=== PATIENT | female | born 1950 | race Caucasian/White ===

== ENCOUNTER 2021-07-27 14:26 | Emergency (ER) | payer MEDICARE, BC ==
[~2021-07-27] VITALS: Ht 160 cm; Wt 84.1 kg
[2021-07-27 14:34] VITALS: TEMP 97.5
[2021-07-27 17:12] LABS: BASO % 0.4 % (0.0-2.0); EOS % 0.3 % (0.0-4.0); GRAN # 7.1 K/mm3 (1.4-6.5); HEMATOCRIT 45.2 % (37.0-47.0); HEMOGLOBIN 14.7 g/dl (12.5-16.0); LYMPH # 1.7 K/mm3 (1.2-3.4); LYMPH % 18.2 % (20.0-51.0); MEAN CELL VOLUME 95 fl (80.0-100.0); MEAN CORPUSCULAR HEMOGLOBIN 31 pg (27-31); MEAN CORPUSCULAR HGB CONC 33 g/dl (33.0-37.0); MEAN PLATELET VOLUME 8.6 fl (7.4-10.4); MONO # 0.6 K/mm3 (0.1-0.6); MONO % 6.7 % (1.7-9.3); PLATELET COUNT 274 K/mm3 (130-400); RED BLOOD COUNT 4.76 M/mm3 (4.10-5.30); REDCELL DISTRIBUTION WIDTH-CV 12.1 % (11.5-14.5)
[2021-07-27 17:30] LABS: PARTIAL THROMBOPLASTIN TIME 35.6 SECONDS (26.0-37.0); PROTHROMBIN TIME 11.7 SECONDS (9.7-12.8)
[2021-07-27 17:46] LABS: ALANINE AMINOTRANSFERASE 16 U/L (0-55); ALBUMIN 3.9 gm/dL (3.4-4.8); ALKALINE PHOSPHATASE 78 U/L (40-150); ANION GAP 14 mmol/L (7-16); AST,SGOT 21 U/L (5-34); BILIRUBIN,TOTAL 0.6 mg/dL (0.2-1.2); BLOOD UREA NITROGEN 16 mg/dL (10-20); CALCIUM 9.5 mg/dL (8.4-10.2); CARBON DIOXIDE 25 mmol/L (23-31); CHLORIDE 104 mmol/L (98-107); CREATININE, serum 0.79 mg/dL (0.57-1.11); GLUCOSE 87 mg/dL (70-99); POTASSIUM 3.6 mmol/L (3.5-4.5); SODIUM 143 mmol/L (136-145); TOTAL PROTEIN 7.5 gm/dL (6.2-8.1)
[2021-07-27] MEDS ORDERED: SYNTHROID0.05 MG/TA PO (17:47)
[2021-07-27] MEDS ORDERED: CARDIZEM CD 30300 MG PO (17:48)
[2021-07-27] MEDS ORDERED: ASPIRIN 81M81 MG/TA2 PO (17:48)
[2021-07-27] MEDS ORDERED: HYDRODIURIL50 MG PO (17:48)
[2021-07-27] MEDS ORDERED: CRESTOR 10MG10 MG PO (17:48)
[2021-07-27] MEDS ORDERED: COZAAR100 MG PO (17:49)
[2021-07-27] MEDS ORDERED: CLARITIN 1010 MG/TAB PO (17:50)
[2021-07-27 18:01] LABS: TROPONIN-I < 0.010 ng/mL (0.00-0.033)
[2021-07-27 18:08] LABS: COLLECTION METHOD CLEAN CATCH
[2021-07-27 18:14] LABS: PH 6 (5-8); SQUAMOUS EPITHELIAL 0-2 /hpf (0-10); URINE APPEARANCE Clear (CLEAR/HAZY); URINE BACTERIA None Seen /hpf (NONE SEEN); URINE BILIRUBIN Negative (NEGATIVE); URINE BLOOD 1+ (NEGATIVE); URINE COLOR Straw (YELLOW); URINE GLUCOSE Negative (NEGATIVE); URINE KETONE Negative (NEGATIVE); URINE LEUKOCYTE ESTERASE Negative (NEGATIVE); URINE NITRATE Negative (NEGATIVE); URINE PROTEIN(semi-quant) Negative (NEGATIVE); URINE RBC None Seen /hpf (0-2); URINE UROBILINOGEN Negative (NEGATIVE)
[2021-07-27 19:33] VITALS: BP 140/83; PULSE 85
== END 2021-07-27 19:33 | disposition home or self-care (01) ==
LOC: COL.ER 14:26
PROVIDERS: Emergency Medicine
DX: R07.89 Other chest pain (principal); N28.89 Other specified disorders of kidney and ureter; R79.1 Abnormal coagulation profile
CPT/HCPCS: Q9967